=== PATIENT | male | born 1980 | race Two or more races ===

== ENCOUNTER 2019-06-15 17:38 | Emergency (ER) | payer MEDICAID ==
[~2019-06-15] VITALS: Ht 175.3 cm; Wt 83.0 kg
--- NOTE | 2019-06-15 17:56 | NUR ---
BIB FATHER C/O DEPRESSION W/ SUICIDAL IDEATION, + PLAN TO TAKE "POISON", PT AWAKE, ALERT, -SOB, -CP, VSS, SI PRECAUTIONS STARTED, SITTER AT BEDJENSEN, DHRUV, PENDING MD HARTLEY
[2019-06-15 18:36] LABS: APPEARANCE,URINE Clear (CLEAR); BILIRUBIN,URINE Negative (NEGATIVE); BLOOD, URINE Negative Ery/uL (NEGATIVE); COLOR,URINE Yellow (YELLOW); KETONES,URINE Negative (NEGATIVE); LEUKOCYTE ESTERASE ,URINE Negative (NEGATIVE); NITRITE, URINE Negative (NEGATIVE); PROTEIN,URINE Negative (NEGATIVE); UGLUCOSE Negative (NEGATIVE); UROBILINOGEN,URINE 0.2 EU/dL (0.2)
[2019-06-15 18:39] LABS: BASOPHILS % (AUTO) 0.4 % (0.0-2.0); EOSINOPHILS % (AUTO) 2.2 % (0.0-6.0); HEMATOCRIT 41 % (39-51); HEMOGLOBIN 13.7 g/dL (13.5-17.5); LYMPHOCYTES # (AUTO) 1.6 /CMM (0.8-4.8); MEAN CORPUSCULAR HGB CONC 33 g/dl (31.0-36.0); MEAN CORPUSCULAR VOLUME 95 fL (80-96); MONOCYTES # (AUTO) 1.2 /CMM (0.1-1.30); MONOCYTES % (AUTO) 13.1 % (2.0-12.0); NEUTROPHILS # (AUTO) 6.3 /CMM (1.8-8.9); NEUTROPHILS % (AUTO) 67.3 % (43.0-81.0); PLATELET COUNT (AUTO) 210 /CMM (150-450); RED BLOOD CELL COUNT(AUTO) 4.38 MIL/uL (4.5-6.0); WHITE BLOOD COUNT (AUTO) 9.3 K/uL (4.3-11.0)
[2019-06-15 18:47] LABS: CALCIUM, SERUM 8.2 mg/dL (8.5-10.1); CARBON DIOXIDE 31 mmol/L (21-32); CHLORIDE 104 mmol/L (98-107); CREATININE 1.1 mg/dL (0.6-1.3); GLUCOSE 108 mg/dL (74-106); POTASSIUM 3.8 mmol/L (3.5-5.1); SODIUM SERUM 141 mmol/L (136-145); UREA NITROGEN, BLOOD 25 mg/dL (7-18)
[2019-06-15 18:52] LABS: ALANINE AMINOTRANSFERASE 88 U/L (12-78); ALBUMIN 3.6 g/dL (3.4-5.0); ALCOHOL, BLOOD < 3 mg/dL (0-0); ALKALINE PHOSPHATASE 90 U/L (46-116); ASPARTATE AMINOTRANSFERASE 42 U/L (15-37); BILIRUBIN,DIRECT 0.1 mg/dL (0.0-0.2); BILIRUBIN,TOTAL 0.3 mg/dL (0.2-1.0); TOTAL PROTEIN, SERUM 6.7 g/dL (6.4-8.2)
[2019-06-15 18:53] LABS: ACETAMINOPHEN 0 ug/ml (10-30); SALICYLATE 0.3 mg/dL (2.8-20.0)
--- NOTE | 2019-06-15 20:03 | NUR ---
[facility] ([facility]) [phone]
[2019-06-16] MEDS ORDERED: LORAZEPAM 1 MG TABLET ONE (00:25)
[2019-06-16] MEDS ORDERED: LORAZEPAM 1 MG TABLET PO ONE (00:30)
--- NOTE | 2019-06-16 01:48 | NUR ---
PATIENT IS ASLEEP. EASILY AROUSED THROUGH TACTILE AND VERBAL STIMULI. BREATHING EVENLY AND UNLABORED ON ROOM AIR. CONNECTED TO MONITOR. SITTER AT BEDSIDE.
--- NOTE | 2019-06-16 02:58 | NUR ---
PT RESTING COMFORTABLY IN BED. VSS. NO ACUTE DISTRESS NOTED. SITTER AT BEDSIDE FOR SAFETY.
--- NOTE | 2019-06-16 04:18 | NUR ---
Kallie powell in ED - 06/16/19 at 0434 by [place]O Pt accepted at [facility] by Dr. Chávez. # for report [phone].
--- NOTE | 2019-06-16 04:20 | NUR ---
Pt accepted at [facility] by Dr. Chávez. # for report [phone]
--- NOTE | 2019-06-16 04:21 | NUR ---
PATIENT IS AWAKE. PATIENT IS RESTING WITH EYES OPENED. DENIES ANY PAIN. MAINTAINS EYE CONTACT. BREATHING EVENLY AND UNLABORED ON ROOM AIR. SITTER AT BEDSIDE.
--- NOTE | 2019-06-16 04:22 | NUR ---
[facility] called for transport eta 07
[2019-06-16 04:59] VITALS: BP 113/81
--- NOTE | 2019-06-16 05:08 | NUR ---
REPORT GIVEN TO ZOEY TAVERA
--- NOTE | 2019-06-16 07:16 | NUR ---
REPORT GIVEN TO EMS. PT STABLE FOR TRANSFER
== END 2019-06-16 07:17 ==
LOC: ER 17:38
DX: R45.851 Suicidal ideations (principal); F31.9 Bipolar disorder, unspecified; E86.0 Dehydration; R74.0 Nonspecific elevation of levels of transaminase and lactic acid dehydrogenase [LDH]; Z88.8 Allergy status to other drugs, medicaments and biological substances
CPT/HCPCS: 36415; 80048; 80076; 80305; 80307; 80329; 81001; 85025; 99285; G0480; 81000-TC